=== PATIENT | female | born 1940 | race Caucasian/White ===

== ENCOUNTER → 2020-04-25 | Outpatient (CLI) | payer OTHER ==
[~2020-04-25] MED LIST: CHILDREN'S ASPI81 M1 PO; CHLORTHALIDONE25 MG PO; CLOTRIMAZOLE-BE15 GM TOP; COZAAR 25 MG TA25 M1 PO; DILTIAZEM ER180 M2 PO; GLIPIZIDE 10 MG10 MG PO; JANUMET XR 50-1 EAC1 PO; LEXAPRO 10 MG T10 M2 PO; LIPITOR10 MG PO; NAPROSYN500 M1 PO; TERBINAFINE HC250 MG PO; XARELTO20 MG PO
== END ==
LOC: M.LAB 11:35
PROVIDERS: ATTEND Internal Medicine
DX: Z01.812 Encounter for preprocedural laboratory examination (principal); Z11.59 Encounter for screening for other viral diseases

== ENCOUNTER → 2021-09-07 | Outpatient (CLI) | payer OTHER ==
[~2021-09-07] MED LIST changes: +FLECAINIDE ACET50 M1 PO
== END ==
LOC: M.MRI 13:57
PROVIDERS: ATTEND Family Medicine
DX: S83.241A Other tear of medial meniscus, current injury, right knee, initial encounter (principal); M17.11 Unilateral primary osteoarthritis, right knee; M25.461 Effusion, right knee; M71.21 Synovial cyst of popliteal space [Baker], right knee; X58.XXXA Exposure to other specified factors, initial encounter; Y93.89 Activity, other specified; Y92.89 Other specified places as the place of occurrence of the external cause; Y99.8 Other external cause status